=== PATIENT | female | born 1965 | race Asian ===

== ENCOUNTER 2023-11-16 21:43 | Emergency (ER) | payer BC, OTHER ==
[~2023-11-16] VITALS: Ht 165.1 cm; Wt 49.0 kg
[~2023-11-16 21:43] MED LIST: CLIN-142 PO
[2023-11-16 22:08] VITALS: BP_SYST 113; PULSE 91; RESP 20; TEMP 100.8; O2SAT 98
[2023-11-16] MEDS: ACETAMINOPHEN 500 MG TABLET PO ONE (22:30)
[2023-11-16] MEDS: NACL 0.9% 1,000 ML IV ONE (23:40)
[2023-11-16] MEDS: ONDANSETRON HCL 4 MG/2 ML VIAL IVP ONE (23:41)
[2023-11-17 00:01] LABS: BASOPHILS % (AUTO) 0.4 % (0.0-2.0); EOSINOPHILS % (AUTO) 0.1 % (0.0-4.0); HEMATOCRIT 37.6 % (36-48); HEMOGLOBIN 12.9 g/dL (12.0-16.0); LYMPHOCYTES # (AUTO) 0.5 K/uL (1.0-5.5); MEAN CORPUSCULAR HEMOGLOBIN 29 pg (27-31); MEAN CORPUSCULAR HGB CONC 34 % (32-36); MEAN CORPUSCULAR VOLUME 84 fL (79.0-98.0); MONOCYTES # (AUTO) 0.8 K/uL (0.0-1.0); MONOCYTES % (AUTO) 9.2 % (1.7-9.3); NEUTROPHILS # (AUTO) 7.4 K/uL (1.8-7.7); NEUTROPHILS % (AUTO) 84.3 % (40.0-70.0); PLATELET COUNT (AUTO) 235 K/uL (130-430); RED BLOOD CELL COUNT(AUTO) 4.47 MIL/uL (4.2-6.2); RED CELL DISTRIBUTION WIDTH 13.1 % (9.0-15.0); WHITE BLOOD COUNT (AUTO) 8.8 K/uL (4.8-10.8)
[2023-11-17 00:25] LABS: ALANINE AMINOTRANSFERASE 18 U/L (12-78); ALBUMIN 3.5 g/dL (3.4-4.8); ANION GAP 9 (5-15); ASPARTATE AMINOTRANSFERASE 20 U/L (10-37); CALCIUM 8.9 mg/dL (8.4-11.0); CARBON DIOXIDE 28 mmol/L (23-29); CHLORIDE 102 mmol/L (98-107); CREATININE 1.06 mg/dL (0.55-1.30); GFR AFRICAN AMERICAN 68 mL/min (>90); GFR NON AFRICAN-AMERICAN 56 mL/min (>90); GLUCOSE 109 mg/dL (74-106); POTASSIUM 3.8 mmol/L (3.5-5.1); SODIUM SERUM 139 mmol/L (136-145); TOTAL BILIRUBIN 0.8 mg/dL (0.0-1.0); TOTAL PROTEIN, SERUM 7.6 g/dL (6.4-8.3); UREA NITROGEN, BLOOD 14 mg/dL (8-21)
[2023-11-17 00:27] LABS: BILIRUBIN,DIRECT 0.2 mg/dL (0.0-0.3)
[2023-11-17] MEDS: NACL 0.9% 1,000 ML IV ONE (00:56)
[2023-11-17] MEDS ORDERED: ONDA-8 TL (01:32)
[2023-11-17] MEDS ORDERED: AZIT-93 PO (01:32)
[2023-11-17 01:51] LABS: INFLUENZA TYPE A Negative (NEGATIVE); INFLUENZA TYPE B NEGATIVE (NEGATIVE)
[2023-11-17 02:03] VITALS: BP_SYST 100; PULSE 72; RESP 22; TEMP 100.8; O2SAT 98
== END 2023-11-17 02:03 | disposition home or self-care (01) ==
LOC: SED 21:43
DX: R05.9 Cough, unspecified (principal); R11.2 Nausea with vomiting, unspecified; R42 Dizziness and giddiness; Z20.822 Contact with and (suspected) exposure to COVID-19; Z79.2 Long term (current) use of antibiotics
CPT/HCPCS: 99284; 96374; 71046; 96361 ×2; 87426; 80076; 80048; 83880; 85025; 85379; 84484; 36415; 87804 ×2; J2405; J7030 ×2

== ENCOUNTER 2023-11-18 19:33 | Emergency (ER) | payer BC ==
[~2023-11-18] VITALS: Ht 165.1 cm; Wt 49.9 kg
[~2023-11-18 19:33] MED LIST changes: +AZIT-93 PO; +ONDA-8 TL
[2023-11-18 20:11] VITALS: BP_SYST 93; PULSE 88; RESP 19; TEMP 99.3; O2SAT 97
[2023-11-18] MEDS ORDERED: KETOROLAC TROMETHAMINE 30 MG VIAL IM ONE (20:45)
[2023-11-18 21:00] LABS: BASOPHILS % (AUTO) 0.1 % (0.0-2.0); EOSINOPHILS % (AUTO) 0.1 % (0.0-4.0); HEMATOCRIT 34.8 % (36-48); HEMOGLOBIN 11.9 g/dL (12.0-16.0); LYMPHOCYTES # (AUTO) 0.5 K/uL (1.0-5.5); LYMPHOCYTES % (AUTO) 4.6 % (20.5-51.5); MEAN CORPUSCULAR HEMOGLOBIN 29 pg (27-31); MEAN CORPUSCULAR HGB CONC 34 % (32-36); MEAN CORPUSCULAR VOLUME 84 fL (79.0-98.0); MONOCYTES # (AUTO) 1.1 K/uL (0.0-1.0); MONOCYTES % (AUTO) 11.6 % (1.7-9.3); NEUTROPHILS # (AUTO) 8.1 K/uL (1.8-7.7); NEUTROPHILS % (AUTO) 83.6 % (40.0-70.0); PLATELET COUNT (AUTO) 229 K/uL (130-430); RED BLOOD CELL COUNT(AUTO) 4.14 MIL/uL (4.2-6.2); RED CELL DISTRIBUTION WIDTH 13.4 % (9.0-15.0); WHITE BLOOD COUNT (AUTO) 9.8 K/uL (4.8-10.8)
[2023-11-18] MEDS: PANTOPRAZOLE SODIUM 40 MG/VIAL (PROTONIX) IVP ONE (21:19)
[2023-11-18] MEDS: ONDANSETRON HCL 4 MG/2 ML VIAL IVP ONE (21:20)
[2023-11-18] MEDS: KETOROLAC TROMETHAMINE 30 MG VIAL IVP ONE (21:21)
[2023-11-18 21:28] LABS: BILIRUBIN,URINE NEGATIVE (NEGATIVE); BLOOD, URINE 2+ (NEGATIVE); COLOR,URINE YELLOW (YELLOW); GLUCOSE,URINE NEGATIVE (NEGATIVE); KETONES,URINE 1+ (NEGATIVE); LEUKOCYTE ESTERASE ,URINE 1+ (NEGATIVE); NITRITE, URINE NEGATIVE (NEGATIVE); PH,URINE 6.5 (5.0-8.0); PROTEIN URINE 2+ (NEGATIVE); UROBILINOGEN,URINE 0.2 (0.2-1.0)
[2023-11-18 21:40] LABS: ALBUMIN 2.7 g/dL (3.4-4.8); BILIRUBIN,DIRECT 0.2 mg/dL (0.0-0.3); CALCIUM 8.4 mg/dL (8.4-11.0); CREATININE 1.14 mg/dL (0.55-1.30); POTASSIUM 3.9 mmol/L (3.5-5.1); TOTAL BILIRUBIN 0.6 mg/dL (0.0-1.0); TOTAL PROTEIN, SERUM 6.9 g/dL (6.4-8.3)
[2023-11-18 21:42] LABS: CLARITY/URINE HAZY (CLEAR)
[2023-11-18 22:16] LABS: BACTERIA,URINE MODERATE /HPF (None Seen)
[2023-11-18] MEDS: NACL 0.9% 1,000 ML IV ONE (23:53)
[2023-11-18] MEDS: MORPHINE 4 MG INJ. 4 MG/ML VIAL IVP ONE (23:57)
[2023-11-19] MEDS ORDERED: ONDA8TAB60 PO (01:26)
[2023-11-19] MEDS ORDERED: IBUP-1969 PO (01:26)
[2023-11-19] MEDS ORDERED: HYDR-3917 PO (01:26)
[2023-11-19] MEDS ORDERED: CIPR500T5 PO (01:26)
[2023-11-19] MEDS: ONDANSETRON HCL 4 MG/2 ML VIAL IVP ONE (01:46)
[2023-11-19 02:01] VITALS: BP_SYST 114; PULSE 90; RESP 18; TEMP 98.8; O2SAT 100
[2023-11-19] MEDS ORDERED: NITR-85 PO (13:34)
[2023-11-19] MEDS ORDERED: cefTRIAXone 2 GM VIAL ONE (13:52)
== END 2023-11-19 02:01 | disposition home or self-care (01) ==
LOC: SED 19:33
DX: N39.0 Urinary tract infection, site not specified (principal); R10.13 Epigastric pain; R51.9 Headache, unspecified; R11.0 Nausea; R50.9 Fever, unspecified; Z79.899 Other long term (current) drug therapy; Z79.2 Long term (current) use of antibiotics
CPT/HCPCS: 99285; 74176; 96374; 96375; 96361; 80076; 80048; 81001; 83690; 85025; 87086; 87186; 36415; 96376; J1885; J2405 ×2; J2470; J2270; J7030; 81000; 81015; J0696

== ENCOUNTER 2023-11-19 10:47 | Emergency (ER) | payer BC ==
[~2023-11-19] VITALS: Ht 157.5 cm; Wt 54.4 kg
[~2023-11-19 10:47] MED LIST changes: +CIPR500T5 PO; +HYDR-3917 PO; +IBUP-1969 PO; +ONDA8TAB60 PO
[2023-11-19 10:57] VITALS: BP_SYST 109; PULSE 87; RESP 20; TEMP 98.3; O2SAT 98
[2023-11-19 11:20] LABS: BASOPHILS % (AUTO) 0.1 % (0.0-2.0); HEMATOCRIT 35.4 % (36-48); HEMOGLOBIN 11.7 g/dL (12.0-16.0); LYMPHOCYTES # (AUTO) 0.5 K/uL (1.0-5.5); LYMPHOCYTES % (AUTO) 5.9 % (20.5-51.5); MEAN CORPUSCULAR HEMOGLOBIN 28 pg (27-31); MEAN CORPUSCULAR HGB CONC 33 % (32-36); MEAN CORPUSCULAR VOLUME 85 fL (79.0-98.0); MONOCYTES # (AUTO) 0.7 K/uL (0.0-1.0); MONOCYTES % (AUTO) 9.2 % (1.7-9.3); NEUTROPHILS # (AUTO) 6.6 K/uL (1.8-7.7); NEUTROPHILS % (AUTO) 84.8 % (40.0-70.0); PLATELET COUNT (AUTO) 261 K/uL (130-430); RED BLOOD CELL COUNT(AUTO) 4.18 MIL/uL (4.2-6.2); RED CELL DISTRIBUTION WIDTH 13.3 % (9.0-15.0); WHITE BLOOD COUNT (AUTO) 7.7 K/uL (4.8-10.8)
[2023-11-19 11:38] LABS: PROTHROMBIN TIME 10.3 SECS (9.5-12.5)
[2023-11-19] MEDS: ACETAMINOPHEN 500 MG TABLET PO ONE (11:39)
[2023-11-19 11:44] LABS: BILIRUBIN,URINE NEGATIVE (NEGATIVE); BLOOD, URINE 3+ (NEGATIVE); CLARITY/URINE CLEAR (CLEAR); COLOR,URINE YELLOW (YELLOW); GLUCOSE,URINE NEGATIVE (NEGATIVE); KETONES,URINE 1+ (NEGATIVE); LEUKOCYTE ESTERASE ,URINE 1+ (NEGATIVE); NITRITE, URINE NEGATIVE (NEGATIVE); PH,URINE 6.5 (5.0-8.0); PROTEIN URINE 1+ (NEGATIVE); UROBILINOGEN,URINE 0.2 (0.2-1.0)
[2023-11-19 11:44] LABS: ALANINE AMINOTRANSFERASE 26 U/L (12-78); ALBUMIN 2.6 g/dL (3.4-4.8); ANION GAP 7 (5-15); ASPARTATE AMINOTRANSFERASE 24 U/L (10-37); CALCIUM 8.2 mg/dL (8.4-11.0); CARBON DIOXIDE 25 mmol/L (23-29); CHLORIDE 102 mmol/L (98-107); CREATININE 1.19 mg/dL (0.55-1.30); GFR AFRICAN AMERICAN 60 mL/min (>90); GLUCOSE 116 mg/dL (74-106); POTASSIUM 3.6 mmol/L (3.5-5.1); SODIUM SERUM 134 mmol/L (136-145); TOTAL BILIRUBIN 0.5 mg/dL (0.0-1.0); TOTAL PROTEIN, SERUM 6.9 g/dL (6.4-8.3); UREA NITROGEN, BLOOD 10 mg/dL (8-21)
[2023-11-19 11:50] LABS: GFR NON AFRICAN-AMERICAN 49 mL/min (>90)
[2023-11-19 11:54] LABS: BACTERIA,URINE MODERATE /HPF (None Seen); MUCUS,URINE 1+ /LPF (None Seen)
[2023-11-19 12:13] LABS: ACETONE, SERUM NEGATIVE (NEGATIVE)
[2023-11-19 12:14] LABS: AMYLASE 51 U/L (0-100); BILIRUBIN,DIRECT 0.2 mg/dL (0.0-0.3); LACTATE DEHYDROGENASE 156 U/L (81-234); LIPASE 33 U/L (16-77)
[2023-11-19] MEDS ORDERED: NITR-85 PO (13:34)
[2023-11-19 15:00] VITALS: BP_SYST 105; PULSE 78; RESP 21; TEMP 98.9; O2SAT 99
== END 2023-11-19 15:00 | disposition home or self-care (01) ==
LOC: SED 10:47
DX: N39.0 Urinary tract infection, site not specified (principal); R10.9 Unspecified abdominal pain; R11.10 Vomiting, unspecified; R51.9 Headache, unspecified; Z79.899 Other long term (current) drug therapy; Z79.2 Long term (current) use of antibiotics
CPT/HCPCS: 99285; 96365; 71045; 80076; 80048; 81001; 82009; 82150; 83615; 83690; 85025; 85610; 85730; 87086; 84484; 36415; 83605; 82397; J0696; J7060; 81000; 81015